=== PATIENT | female | born 1975 | race Caucasian/White ===

== ENCOUNTER 2017-11-08 11:57 | Emergency (ER) | payer BC ==
[2017-11-08 12:20] VITALS: BP 115/72; PULSE 77; RESP 16; TEMP 97.2; O2SAT 97
[2017-11-08] MEDS ORDERED: TDAP VACCINE 0.5 ML SUS IM ONE ×2 (12:23→12:24)
== END 2017-11-08 12:36 | disposition home or self-care (01) ==
LOC: ED 11:57
DX: S91.011A Laceration without foreign body, right ankle, initial encounter (principal)
CPT/HCPCS: 12001; 90471; 90715; 99282; G0168; A6402